=== PATIENT | female | born 1950 ===

== ENCOUNTER → 2016-10-01 | Outpatient (CLI) | payer MEDICARE ==
[2016-10-01 13:19] LABS: ANION GAP 9.8 (10.0-19.0); CALCIUM 8.7 mg/dL (8.5-10.5); CREATININE 0.9 mg/dL (0.5-1.1); POTASSIUM 3.8 mMol/L (3.7-5.1)
== END | disposition disaster alternative care site (69) ==
LOC: LNHI 13:04
PROVIDERS: Internal Medicine Interventional Cardiology
DX: I83.813 Varicose veins of bilateral lower extremities with pain (principal)